=== PATIENT | male | born 1955 | race Caucasian/White ===

== ENCOUNTER 2019-05-15 17:11 | Inpatient (IN) | payer OTHER ==
[~2019-05-15] VITALS: Ht 177.8 cm; Wt 81.2 kg
[2019-05-15 17:11] VITALS: BP 67/31
[2019-05-15 17:50] LABS: MCH 23.2 pg (26.0-34.0); MCHC 27.8 g/dL (28.0-37.0); MCV 83.5 fL (80.0-100.0); MPV 8.6 fl. (7.2-11.1); NUCLEATED RBCS 2 /100WBC; PLATELET COUNT* 245 thou/uL (150-400); RBC 1.99 mil/uL (4.50-6.00); RDW-CV 22.5 % (10.5-14.5); WBC 17.1 thou/uL (4.0-11.0)
[2019-05-15 17:54] LABS: HEMATOCRIT 16.6 % (42.0-52.0); HEMOGLOBIN 4.6 gm/dL (14.0-18.0)
[2019-05-15 17:55] LABS: CALCIUM 7.3 mg/dL (8.5-10.1); CREATININE 1.1 mg/dL (0.6-1.3)
[2019-05-15 17:57] LABS: POTASSIUM 6.8 mmol/L (3.5-5.1)
[2019-05-15 18:04] LABS: APTT 66.2 Seconds (25.0-31.3); INR 1.5; PROTIME 14.7 Seconds (9.20-11.50)
[2019-05-15 18:09] LABS: BE -25.4 mmol/L (-2 to +3)
[2019-05-15 18:11] LABS: TOTAL BILIRUBIN 0.1 mg/dL (<0.1-1.0); TOTAL PROTEIN 4.3 g/dL (6.4-8.2)
[2019-05-15 18:17] LABS: PCO2 69.1 mmHg (35.0-45.0)
[2019-05-15 18:18] LABS: PO2 220.8 mmHg (75.0-100.0)
[2019-05-15 18:19] LABS: pH < 6.702 (7.340-7.450)
[2019-05-15 18:50] VITALS: BP 73/32
--- NOTE | 2019-05-15 19:14 | NUR ---
CPR INITIATED AT [address] DAVIES AT 1717 ET 7.5 @ 23 LIP AND PLACED ON VENTILATOR REFER TO CEODE SHEET FOR FURTHER DOCUMENTATION CENTRAL LINE PLACEMENT RIGHT NECK PER DR DAVIES @ 1725 TRIPLE LUMEN
--- NOTE | 2019-05-15 19:20 | NUR ---
TOOK REPORT FROM MARIN IN ER. GAVE REPORT TO TISSUE TECHNOLOGIST NURSE. PT BROUGHT OVER BY ER NURSING STAFF ON VENT @ 1905.NURSING STAFF WAS SETTLING PT WITH BRENDA 191.FAMILY AT BEDSIDE.
--- NOTE | 2019-05-15 19:34 | NUR ---
NG PLACED LEFT NARE AT 65 LINE AT 1745 WITHOUT DIFFICULTY, PLACEMENT VERIFIED PER XRAY, DARK RED DRAINAGE NOTED THROUGH TUBE, AUSCULTATED AIR SOUNDS THROUGH EPIGASTRIUM.
--- NOTE | 2019-05-15 19:36 | NUR ---
AT 1800, DIFFICULTY WITH ENNIS. NO URINE PRESENT IN ENNIS DURING INSERTION. BLADDER SCAN NOTED 131 ML. BLEEDING NOTED AROUND PENIS. NOTIFIED DR DAVIES AND DR REGALADO, DR REGALADO STATES AT 1820, PT WILL BE COMFORT CARE MEASURES AND DC ENNIS CATH ORDER. NEVER REATTEMPTED ENNIS CATH.
[2019-05-15 19:53] LABS: ABSOLUTE EOSINOPHILS 0.3 thou/uL (0.0-0.7); ABSOLUTE LYMPHOCYTES 2.7 thou/uL (0.8-5.3); ABSOLUTE MONOCYTES 0.7 thou/uL (0.0-1.2); ATYPICAL LYMPHS 3 %; METAMYELOCYTES 12 %; MYELOCYTES 2 %
[2019-05-15 19:55] LABS: HYPOCHROMASIA 1+; PROMYELOCYTES 3 %
[2019-05-15 20:07] LABS: ANISOCYTOSIS 2+
[2019-05-15 20:08] LABS: OVALOCYTES 1+; TEARDROPS 1+
[2019-05-15 20:09] LABS: BURR CELLS Occasional
[2019-05-15 20:10] LABS: MACROCYTES Occasional; MICROCYTES Occasional
[2019-05-15 20:11] LABS: PLATELET ESTIMATE ADEQUATE; POLYCHROMASIA Occasional
--- NOTE | 2019-05-15 23:32 | NUR ---
Family members (, 's sister, and 's mother) at bedside at time of admission, then left at approximately 1999. Pt had no personal effects. Pt's body dc'd from unit per cart per [employer], accompanied by security systems sales representative, at 2330.
--- NOTE | 2019-05-16 10:12 | EKG ---
[place] [address] ELECTROCARDIOGRAM REPORT Name: TRUDY RIVERA Room: [address] IN [facility].#: [id number] Admission: 05/15/19 Attend Phys: Rodriguez Baron Discharge: 05/15/19 Date of : 53 Report #: [id number] THIS REPORT FOR: //name// [facility] ED Test Date: 2019-05-15 Test Time: 17:55:14 Pat Name: TRUDY RIVERA Department: Room: [facility] Gender: M Store Associate: GANESH : 1955 Requested By: Kemar Peralta Order Number: [id number] MD: Maverick Perez Measurements Intervals [place] Rate: 87 P: 50 [place]: 184 QRS: -17 QRSD: 83 T: 32 QT: 357 QTc: 430 Interpretive Statements 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
== END 2019-05-15 19:10 | DRG 871 ==
LOC: M.ERS 17:11 → M.TBA-ER 18:10 → M.ICU 19:10
PROVIDERS: Family Medicine; ADMIT Family Medicine
DX: A41.9 Sepsis, unspecified organism (principal); R65.21 Severe sepsis with septic shock; J96.01 Acute respiratory failure with hypoxia; E43 Unspecified severe protein-calorie malnutrition; C16.9 Malignant neoplasm of stomach, unspecified; K92.2 Gastrointestinal hemorrhage, unspecified; D62 Acute posthemorrhagic anemia; Z66 Do not resuscitate; Z51.5 Encounter for palliative care; I46.9 Cardiac arrest, cause unspecified; I10 Essential (primary) hypertension; E78.5 Hyperlipidemia, unspecified; K75.89 Other specified inflammatory liver diseases; Z68.25 Body mass index [BMI] 25.0-25.9, adult